=== PATIENT | female | born 1975 | race Caucasian/White ===

== ENCOUNTER 2017-05-21 15:03 | Emergency (ER) | payer OTHER ==
[2017-05-21 15:15] VITALS: RESP 16; TEMP 98.2; O2SAT 100
[2017-05-21] MEDS ORDERED: METOCLOPRAMIDE 10 MG/2 ML VIAL IVP ONE (15:32)
[2017-05-21] MEDS ORDERED: NS 1,000 ML IV ONE (15:32)
[2017-05-21 15:36] LABS: LEUKOCYTE ESTERASE,URINE NEGATIVE (NEGATIVE); NITRITE,URINE NEGATIVE (NEGATIVE)
[2017-05-21 15:37] LABS: COLOR PALE YELLOW
--- NOTE | 2017-05-21 15:37 | EDPHY ---
H & P Time Seen by Provider: 05/21/17 15:17 HPI/ROS: CHIEF COMPLAINT: Abdominal cramping, blood in stool HISTORY OF PRESENT ILLNESS: Patient is a 42-year-old female who presents emergency department with complaints of abdominal cramping and discomfort. Her symptoms started at the beginning of the weekend. She describes generalized lower mid abdominal discomfort. It does not radiate. Her pain is moderate to severe. She has had increased diarrhea. Today she noticed bright red blood in her stool. No black or dark colored stool. She has no dysuria or hematuria. She states she has been drinking "a ton of water" and has been urinating more frequently. She denies fevers or chills. No recent travel or camping. No antibiotic use. Patient's daughter became ill yesterday with vomiting. Patient' s daughter has been staying with her father for the past 4 days. REVIEW OF SYSTEMS: My complete review of systems is negative except as mentioned in the HPI. Past Medical/Surgical History: Negative Past surgical history: Social history: The patient does not smoke. Patient works as a associate store manager Smoking Status: Unknown if ever smoked Physical Exam: Vitals noted GENERAL: Well-appearing, in no acute distress, alert. HEENT: Eyes normal to inspection, normal pharynx, no signs of dehydration. NECK: No thyromegaly, no lymphadenopathy, supple. RESPIRATORY: Clear to auscultation bilaterally, no rales, rhonchi or wheezing. CVS: Regular rate and rhythm, no rubs, murmurs, or gallops. ABDOMEN: Soft, mild lower abdominal tenderness palpation with no rebound or guarding, nondistended, no organomegaly. BACK: Normal to inspection, no CVA tenderness. SKIN: Normal color, no rash, warm, dry. No pallor. EXTREMITIES: No pedal edema, no calf tenderness, no Homans sign or cords, no joint swelling. NEURO/PSYCH: Alert and oriented, normal mood and affect, normal motor sensory exam. Constitutional: Initial Vital Signs Temperature (C) 36.8 C 05/21/17 15:12 Heart Rate 82 05/21/17 15:12 Respiratory Rate 16 05/21/17 15:12 Blood Pressure 150/98 H 05/21/17 15:12 O2 Sat (%) 100 05/21/17 15:12 O2 Delivery Mode Room Air Allergies/Adverse Reactions: metronidazole [From Flagyl] Allergy (Verified 05/21/17 15:11) Vomiting Metronidazole HCl [From Flagyl] Allergy (Verified 05/21/17 15:11) Vomiting Home Medications: Medication Instructions Recorded Multivitamin 05/21/17 Medical Decision Making ED Course/Re-evaluation: In the emergency department I discussed possible etiologies with the patient. I answered all her questions. An IV was placed. She was given normal saline 1 L IV for hydration. She is given Reglan 10 mg IV for her abdominal cramping. She is given Imodium orally. Laboratory studies including stool studies were ordered. These will be sent to the [facility] Patient's urine was negative. Patient has a mildly low hematocrit at 35. Awaiting other laboratory studies. Patient's chemistry panel is unremarkable. is negative. LFTs and lipase negative. I rechecked the patient. She states she is feeling better. She has had no bowel movement while in the emergency department. Due the patient's mildly low hematocrit patient will have a CT of abdomen and pelvis. I discussed this with the patient and answered all her questions. CT abdomen and pelvis: Please refer the dictated report by Dr. Carrera. No acute disease noted. I discussed the result with the patient. On recheck she was doing much better. Abdomen was soft, nontender nondistended. Patient will follow up with Gastroenterology. She was given contact information. She was given warnings prior to leaving. She will return with worsening symptoms. Differential Diagnosis: My differential includes but is not limited to colitis, enteritis, urinary tract infection, pyelonephritis, , ectopic , appendicitis, internal hemorrhoid malignancy, mass, diverticulitis - Data Points Laboratory Results: Laboratory Results 05/21/17 15:45 05/21/17 15:45 05/21/17 05/21/17 05/21/17 15:45 15:45 15:45 WBC RBC Hgb Hct MCV MCH MCHC RDW Plt Count MPV Neut % (Auto) Lymph % (Auto) Harrison % (Auto) Eos % (Auto) Baso % (Auto) Nucleat RBC Rel Count Absolute Neuts (auto) Absolute Lymphs (auto) Absolute Monos (auto) Absolute Eos (auto) Absolute Basos (auto) Absolute Nucleated RBC Immature Gran % Immature Gran # PT 12.9 SEC SEC (12.0-15.0) INR 1.00 (0.83-1.16) APTT 28.0 SEC SEC (23.0-38.0) Sodium 138 mEq/L mEq/L (134-144) Potassium 4.1 mEq/L mEq/L (3.5-5.2) Chloride 103 mEq/L mEq/L (97-110) Carbon Dioxide 23 mEq/l mEq/l (22-31) Anion Gap 12 mEq/L mEq/L (8-16) BUN 13 mg/dL mg/dL (7-23) Creatinine 0.6 mg/dL mg/dL (0.6-1.0) Estimated GFR > 60 Glucose 91 mg/dL mg/dL (70-100) Calcium 9.5 mg/dL mg/dL (8.5-10.4) Total Bilirubin 0.4 mg/dL mg/dL (0.1-1.4) Conjugated Bilirubin 0.3 mg/dL mg/dL (0.0-0.5) Unconjugated Bilirubin 0.1 mg/dL mg/dL (0.0-1.1) AST 23 IU/L IU/L (14-46) ALT 27 IU/L IU/L (9-52) Alkaline Phosphatase 82 IU/L IU/L (38-126) Total Protein 6.9 g/dL g/dL (6.3-8.2) Albumin 4.0 g/dL g/dL (3.5-5.0) Lipase 79.0 IU/L IU/L (23-300) Beta HCG, Qual NEGATIVE Urine Color Urine Appearance Urine pH Ur Specific [place] Urine Protein Urine Ketones Urine Blood Urine Nitrate Urine Bilirubin Urine Urobilinogen Ur Leukocyte Esterase Urine Glucose 05/21/17 05/21/17 15:45 15:30 WBC 8.34 10^3/uL 10^3/uL (3.80-9.50) RBC 4.56 10^6/uL 10^6/uL (4.18-5.33) Hgb 11.5 g/dL L g/dL (12.6-16.3) Hct 35.5 % L % (38.0-47.0) MCV 77.9 fL L fL (81.5-99.8) MCH 25.2 pg L pg (27.9-34.1) MCHC 32.4 g/dL g/dL (32.4-36.7) RDW 15.2 % % (11.5-15.2) Plt Count 440 10^3/uL H 10^3/uL (150-400) MPV 9.4 fL fL (8.7-11.7) Neut % (Auto) 63.1 % % (39.3-74.2) Lymph % (Auto) 26.5 % % (15.0-45.0) Harrison % (Auto) 8.8 % % (4.5-13.0) Eos % (Auto) 0.5 % L % (0.6-7.6) Baso % (Auto) 0.7 % % (0.3-1.7) Nucleat RBC Rel Count 0.0 % % (0.0-0.2) Absolute Neuts (auto) 5.27 10^3/uL 10^3/uL (1.70-6.50) Absolute Lymphs (auto) 2.21 10^3/uL 10^3/uL (1.00-3.00) Absolute Monos (auto) 0.73 10^3/uL 10^3/uL (0.30-0.80) Absolute Eos (auto) 0.04 10^3/uL 10^3/uL (0.03-0.40) Absolute Basos (auto) 0.06 10^3/uL 10^3/uL (0.02-0.10) Absolute Nucleated RBC 0.00 10^3/uL 10^3/uL (0-0.01) Immature Gran % 0.4 % % (0.0-1.1) Immature Gran # 0.03 10^3/uL 10^3/uL (0.00-0.10) PT INR APTT Sodium Potassium Chloride Carbon Dioxide Anion Gap BUN Creatinine Estimated GFR Glucose Calcium Total Bilirubin Conjugated Bilirubin Unconjugated Bilirubin AST ALT Alkaline Phosphatase Total Protein Albumin Lipase Beta HCG, Qual Urine Color PALE YELLOW Urine Appearance CLEAR Urine pH 6.0 (5.0-7.5) Ur Specific [place] 1.010 (1.002-1.030) Urine Protein NEGATIVE (NEGATIVE) Urine Ketones NEGATIVE (NEGATIVE) Urine Blood NEGATIVE (NEGATIVE) Urine Nitrate NEGATIVE (NEGATIVE) Urine Bilirubin NEGATIVE (NEGATIVE) Urine Urobilinogen 0.2 EU EU (0.2-1.0) Ur Leukocyte Esterase NEGATIVE (NEGATIVE) Urine Glucose NEGATIVE (NEGATIVE) Medications Given: Discontinued Medications Sodium Chloride (Ns) 1,000 mls @ 0 mls/hr IV ONCE ONE; Wide Open PRN Reason: Protocol Stop: 05/21/17 15:33 Last Admin: 05/21/17 15:49 Dose: 1,000 mls Loperamide HCl (Imodium) 4 mg PO EDNOW ONE Stop: 05/21/17 15:39 Last Admin: 05/21/17 16:05 Dose: 4 mg Metoclopramide HCl (Reglan Injection) 10 mg IVP EDNOW ONE Stop: 05/21/17 15:33 Last Admin: 05/21/17 15:50 Dose: 10 mg Departure - Departure Disposition: Home, Routine, Self-Care Clinical Impression: Abdominal pain Qualifiers: Abdominal location: lower abdomen, unspecified Qualified Code(s): R10.30 - Lower abdominal pain, unspecified Condition: Good Instructions: Acute Diarrhea (ED), Acute Abdominal Pain (ED), Rectal Bleeding ( ED) Additional Instructions: Your CT scan was unremarkable. You had a mildly low hematocrit at 35. You need close follow-up with her primary care physician as well as Gastroenterology. Return with increasing pain, diarrhea, rectal bleeding or any other concerns. Referrals: Reagan Mercedes MD, FACG [Medical Doctor] - 5-7 days, if not improved
[2017-05-21] MEDS ORDERED: LOPERAMIDE HCL 2 MG CAP PO ONE (15:38)
[2017-05-21 15:50] LABS: % IMMATURE GRANULYOCYTES 0.4 % (0.0-1.1); ABSOLUTE IMMATURE GRANULOCYTES 0.03 10^3/uL (0.00-0.10); ADD DIFF? NO; ADD MORPH? NO; ADD SCAN? NO; ATYPICAL LYMPHOCYTE FLAG 20 (0-99); FRAGMENT RBC FLAG 0 (0-99); HEMATOCRIT 35.5 % (38.0-47.0); HEMOGLOBIN 11.5 g/dL (12.6-16.3); LEFT SHIFT FLG 0 (0-99); LIPEMIA HEMOLYSIS FLAG 80 (0-99); MEAN CELL HEMOGLOBIN 25.2 pg (27.9-34.1); MEAN CELL HEMOGLOBIN CONCENTR. 32.4 g/dL (32.4-36.7); MEAN CELL VOLUME 77.9 fL (81.5-99.8); MEAN PLATELET VOLUME 9.4 fL (8.7-11.7); PLATELET CLUMPS FLAG 10 (0-99); PLATELET COUNT 440 10^3/uL (150-400); RED BLOOD CELL COUNT 4.56 10^6/uL (4.18-5.33); RED CELL DISTRIBUTION WIDTH 15.2 % (11.5-15.2)
[2017-05-21 15:59] LABS: PROTIME(PATIENT) 12.9 SEC (12.0-15.0)
[2017-05-21 16:03] LABS: ALANINE AMINOTRANSFERASE 27 IU/L (9-52); ALKALINE PHOSPHATASE 82 IU/L (38-126); ANION GAP 12 mEq/L (8-16); ASPARTATE AMINOTRANSFERASE 23 IU/L (14-46); BILIRUBIN,TOTAL 0.4 mg/dL (0.1-1.4); BILIRUBIN-CONJUGATED 0.3 mg/dL (0.0-0.5); BILIRUBIN-UNCONJUGATED 0.1 mg/dL (0.0-1.1); CALCIUM 9.5 mg/dL (8.5-10.4); CARBON DIOXIDE 23 mEq/l (22-31); CHLORIDE 103 mEq/L (97-110); CREATININE 0.6 mg/dL (0.6-1.0); GLOMERULAR FILTRATION RATE > 60; GLUCOSE 91 mg/dL (70-100); POTASSIUM 4.1 mEq/L (3.5-5.2); SODIUM 138 mEq/L (134-144); TOTAL PROTEIN 6.9 g/dL (6.3-8.2)
[2017-05-21] MEDS ORDERED: IOPAMIDOL (ISOVUE-300) 100 ML BTL ONE (16:35)
[2017-05-21 17:29] VITALS: BP 113/72; PULSE 73
== END 2017-05-21 17:20 | disposition home or self-care (01) ==
LOC: CED 15:03
DX: R10.30 Lower abdominal pain, unspecified (principal); E86.9 Volume depletion, unspecified
CPT/HCPCS: 74177-PO; 80048-PO; 80076-PO; 81003-PO; 83690-PO; 84703-PO; 85025-PO; 85610-PO; 85730-PO; 96374; J2765; Q9967

== ENCOUNTER → 2018-09-25 | Outpatient (CLI) | payer OTHER | LOC: CIMAGING 13:30 | PROVIDERS: ATTEND Internal Medicine | DX: Z03.89 Encounter for observation for other suspected diseases and conditions ruled out (principal) | CPT/HCPCS: 76641-PO ==